=== PATIENT | male | born 1990 | race Caucasian/White ===

== ENCOUNTER 2018-03-09 13:39 | Emergency (ER) | payer OTHER ==
[~2018-03-09] VITALS: Ht 182.9 cm; Wt 99.8 kg
[2018-03-09 13:44] VITALS: BP 151/88
--- NOTE | 2018-03-09 14:00 | ED HAND/WRIST INJURY COMPLAINT ---
History of Present Illness General Chief Complaint: Hand or Wrist Injury Stated Complaint: RT WRIST PAIN Source: patient Exam Limitations: no limitations Vital Signs & Intake/Output Vital Signs & Intake/Output Vital Signs Date Time Temp Pulse Resp B/P B/P Pulse O2 O2 Flow FiO2 Mean Ox Delivery Rate 03/09 1432 84 18 99 Room Air 03/09 1419 Room Air 03/09 1344 97.1 78 18 151/88 98 Room Air Allergies Coded Allergies: NO KNOWN ALLERGIES (02/05/12) Reconcile Medications No Known Home Medications Triage Note: STATES THAT HE WAS AT WORK AND PUSHED DOWN ON TIRE AND FELT PAIN IN R WRIST, DENIES PAIN AT TRIAGE, STATES THAT IT ONLY HURTS WHEN HE TRIES TO USE IT Triage Nurses Notes Reviewed? yes Occurred: just prior to arrival Timing: recent history Injury Environment: home Pain/Injury Location: Right: Wrist. HPI: 27-year-old male comes into emergency room with right wrist pain. Patient reports that he was at work when he was pushing on something and he felt the pain. He said some pain with range of motion since then. Denies any numbness or tingling. Denies any falls. Comes in for further evaluation. (Shravan Jacobs) Past History Travel History Traveled to [place] past 21 day No Medical History Any Pertinent Medical History? see below for history Neurological: NONE EENT: NONE Cardiovascular: NONE Respiratory: NONE Gastrointestinal: NONE Hepatic: NONE Renal: NONE Musculoskeletal: NONE Psychiatric: NONE Endocrine: NONE Blood Disorders: NONE Cancer(s): NONE SENIOR PYTHON DEVELOPER/Reproductive: NONE Tetanus Vaccine: 02/05/12 Surgical History Surgical History: non-contributory Psychosocial History What is your primary language R[place]an Tobacco Use: Never used ETOH Use: denies use Illicit Drug Use: denies illicit drug use Family History Hx Contributory? No (Shravan Jacobs) Review of Systems Review of Systems Constitutional: Reports: no symptoms. EENTM: Reports: no symptoms. Respiratory: Reports: no symptoms. Cardiovascular: Reports: no symptoms. GI: Reports: no symptoms. Genitourinary: Reports: no symptoms. Musculoskeletal: Reports: see HPI. Skin: Reports: no symptoms. Neurological/Psychological: Reports: no symptoms. Hematologic/Endocrine: Reports: no symptoms. Immunologic/Allergic: Reports: no symptoms. All Other Systems: Reviewed and Negative (Shravan Jacobs) Physical Exam Physical Exam General Appearance: well developed/nourished, mild distress Head: atraumatic Eyes: Bilateral: normal appearance. Ears, Nose, Throat: normal ENT inspection, hearing grossly normal Neck: normal inspection Cardiovascular/Respiratory: no respiratory distress Back: normal inspection Wrist Right: soft tissue tenderness, full range of motion, strength intact with flexion/extention, pain with flexion Hand Left: normal inspection Hand Right: normal inspection Neurologic/Tendon: normal sensation, normal motor functions, normal tendon functions, responds to pain, no evidence tendon injury, no pulse deficit Skin: intact, normal color, warm/dry (Shravan Jacobs) Progress Differential Diagnosis: contusion, fracture, sprain, tendon strain Plan of Care: Orders Procedure Date/time Status Durable Medical Equipment 03/09 1420 Active Diagnostic Imaging: Viewed by Me: Radiology Read. Discussed w/RAD: Radiology Read. Radiology Impression: PATIENT: MATT ROMO PRESENT AGE: 27 PATIENT ACCOUNT NO: [id number] : 92 LOCATION: [facility] ORDERING PHYSICIAN: Shravan WILLIAMSON SERVICE DATE: 03/09/18 EXAM TYPE: RAD - XRY-WRIST COMPLETE-RIGHT EXAMINATION: XR WRIST, RIGHT CLINICAL INFORMATION: Injury to right wrist. Pain. COMPARISON: None TECHNIQUE: PA, lateral, and oblique views of the right wrist. FINDINGS: The bones and soft tissues are normal. No fracture. Alignment is anatomic with normal joint spaces. IMPRESSION: Normal right wrist. DICTATED BY: Yoly Vasquez MD DATE/TIME DICTATED:1407 RETAIL FIELD REPRESENTATIVE:OFELIA DATE/TIME TRANSCRIBED:03/09/181407 CONFIDENTIAL, DO NOT COPY WITHOUT APPROPRIATE AUTHORIZATION. <Electronically signed in Other Vendor System> SIGNED BY: Yoly Vasquez MD 03/09/18 1419 (Shravan Jacobs) Departure Departure Disposition: HOME OR SELF CARE Condition: Stable Clinical Impression Primary Impression: Strain of right wrist Referrals: Patient Has No Primary Care Dr (PCP/Family) Additional Instructions: Ice. Ibuprofen. Rest. Follow-up with orthopedic doctor if not better in 7 days. Return if any other concerns. Please go over all results of today's visit with your primary care doctor. Contact your primary care doctor to let them know you were here in the emergency room. There may be nonspecific findings which may not be related to your visit today here in the emergency room but may require further evaluation and chronic monitoring by your primary care doctor. If you had a laceration today the chance of foreign body always remains. You should follow-up with your primary care doctor for recheck in 3-5 days for a wound check. If you had an x-ray done there is a chance that a fracture could have been missed on initial read and you should follow-up with your primary care doctor for repeat x-rays if symptoms persist. If your blood pressure was elevated here in the emergency room please have rechecked by [facility] primary care doctor within the next 48. If you were prescribed a narcotic here in the emergency room or any type of controlled substances you're not allowed to drive while taking this medication or operate any type of heavy machinery. Narcotics can make you feel lightheaded dizziness nausea and can cause constipation. You may need to cone picker a stool softener. Thank you for choosing [facility] emergency room. Please return to the emergency room immediately if you have any other concerns worsening of symptoms. Departure Forms: Customer Survey General Discharge Information Prescriptions: Current Visit Scripts No Known Home Medications Comments 03/09/18 Patient denied wanting to fill out [employer] comp information here he wants to follow-up with his place of work and talk with them first. No evidence of fracture. Likely tendon injury. Refer to orthopedic doctor. Return if any concerns worsening symptoms (Shravan Jacobs) PA/DUB ROOM ENGINEER Co-Sign Statement Statement: ED Attending supervision documentation- [] I saw and evaluated the patient. I have also reviewed all the pertinent lab results and diagnostic results. I agree with the findings and the plan of care as documented in the PA's/DUB ROOM ENGINEER's documentation. [X] I have reviewed the ED Record and agree with the PA's/DUB ROOM ENGINEER's documentation. [] Additions or exceptions (if any) to the PAs/DUB ROOM ENGINEER's note and plan are summarized below: [] (Adrianne ARTEAGA,Matt Yee) Procedures Splinting Location: right wrist Manual Alignment Performed: No Pre-Made Type: velcro Splint: wrist Splint Applied By: splint applied by me Pre-Proc Neuro Vasc Exam: normal Post-Proc Neuro Vasc Exam: normal (Shravan Jacobs)
--- NOTE | 2018-03-09 14:13 | RADIOLOGY REPORT ---
EXAMINATION: XR WRIST, RIGHT CLINICAL INFORMATION: Injury to right wrist. Pain. COMPARISON: None TECHNIQUE: PA, lateral, and oblique views of the right wrist. FINDINGS: The bones and soft tissues are normal. No fracture. Alignment is anatomic with normal joint spaces. IMPRESSION: Normal right wrist.
== END 2018-03-09 14:34 ==
LOC: ERH 13:39
DX: S66.811A Strain of other specified muscles, fascia and tendons at wrist and hand level, right hand, initial encounter (principal); X58.XXXA Exposure to other specified factors, initial encounter; Y92.89 Other specified places as the place of occurrence of the external cause; Y93.89 Activity, other specified
CPT/HCPCS: 73110-RT